=== PATIENT | male | born 1970 | race Caucasian/White ===

== ENCOUNTER 2020-12-07 23:25 | Emergency (ER) | payer OTHER, SELFPAY ==
[2020-12-07 23:28] VITALS: BP 166/64; PULSE 68; RESP 16; TEMP 36.1; O2SAT 99; BMI 23.6
--- NOTE | 2020-12-08 00:34 | PC.NURSE ---
pt dressing dry intact no further bleeding noted. sister is sitting with pt. pt is intoxicated, calm and cooperative. pt states his head hurts alot.
[2020-12-08 01:00] VITALS: BP 131/85; PULSE 64; RESP 16
--- NOTE | 2020-12-08 01:05 | PC.NURSE ---
PT A&O, NO SOB OR CHEST PAIN. PT HAS BEEN DRINKING ALCOHOL THIS EVENING AT HIS FAMILY HOUSE. SISTER REPORT HE FELL BACKWARDS AND HIT HIS HEAD ON THE DRIVEWAY. PT IS ABLE TO ANSWER QUESTION, STATE HIS DATE OF AND KNOWS WHERE HE IS AT. REPORT GIVEN TO PRIMARY NURSE.
--- NOTE | 2020-12-08 01:38 | CT_ITS ---
EXAMINATION: CT HEAD WITHOUT CONTRAST CLINICAL INFORMATION: Fall. Loss of consciousness. COMPARISON: None. TECHNIQUE: Contiguous axial imaging was performed from the skull base to vertex without intravenous contrast. This CT examination was performed using dose optimization techniques as appropriate, variously including the following: * Automated exposure control * Adjustment of mA and/or kV according to patient size (this includes techniques or standardized protocols for targeted exams where dose is matched to indication/reason for exam; i.e. extremities or head) Use of iterative reconstruction technique DLP: 854 mGy-cm. FINDINGS: There is no evidence of acute intracranial hemorrhage or territorial infarction. No abnormal mass effect or midline shift is seen. Moss to white matter differentiation is well preserved. No extra-axial fluid collections are identified. No hydrocephalus. No significant volume loss. There is no abnormal attenuation within the brain parenchyma. There is a prominent subgaleal hematoma overlying the right parieto-occipital region. No underlying calvarial fracture. The mastoid air cells and visualized portions of the paranasal sinuses are well aerated. CT/CT head/brain wo con IMPRESSION: No acute intracranial pathology.
--- NOTE | 2020-12-08 01:54 | PC.NURSE ---
PT TAKEN TO CT-SCAN. PT IS ABLE TO ANSWER QUESTION APPROPRIATELY. NEUROS ARE INTACT
--- NOTE | 2020-12-08 02:05 | PC.NURSE ---
PATIENT RETURNED FROM CT SCAN, ANXIOUS TO BE DISCHARGED FROM ED, BUT COOPERATIVE WITH STAFF AT THIS TIME. WILL CONTINUE TO MONITOR.
--- NOTE | 2020-12-08 02:50 | ED_ITS ---
HPI - General Adult General Chief complaint: Fall Stated complaint: Fall/Head Lac Time Seen by Provider: 12/08/20 01:34 Source: patient Mode of arrival: ambulatory Limitations: no limitations History of Present Illness HPI narrative: 50-year-old male who presents emergency department for evaluation of injury to his scalp after fall. The patient states that he was drinking beer this evening. Apparently he tripped and fell backwards striking his head on the concrete. He may have had a brief loss of consciousness. He sustained a laceration to his scalp which was bleeding years brought to the emergency department for evaluation. The patient states this tetanus status is up-to-date. He denies headache, nausea or vomiting. He denies numbness or weakness. He states he was in his usual state of health until he fell. Related Data Allergies Allergy/AdvReac Type Severity Reaction Status Date / Time No Known Allergies Allergy Verified 12/07/20 23:31 Review of Systems Review of Systems: Yes all other systems are reviewed and are negative Neurologic: Reports Abnormal speech present [facility] Past Medical History [facility] Narrative: Patient has no medical problems. He does drink alcohol, denies tobacco and alcohol use. Social History Social History Advance Directives: No Advance Directives Information Provided: No Physical Exam Vital Signs: Vital Signs: Last Vital Signs Temp 97.0 F 12/07/20 23:28 Pulse 64 12/08/20 01:00 Resp 16 12/08/20 01:00 BP 131/85 12/08/20 01:00 Pulse Ox 99 12/07/20 23:28 Body Mass Index 23.6 Const: General: cooperative, healthy appearing and other (Patient appears intoxicated but he is very pleasant and cooperative) Orientation/consciousness: oriented to person and oriented to place Limitations: no limitations HENMT: Head: Yes normal to inspection, Yes normocephalic, Yes hematoma (3 x 3 cm right occipital area), Yes laceration (4.5 cm laceration to occipital scalp, full skin thickness, bleed) and Yes scalp tenderness Ears: external ears normal General nose exam: Normal external nose present Face and sinus: Yes normal facial exam Mouth: Normal oral and palatal mucosa present Throat: Yes posterior oropharynx normal Eyes: Periorbital: periorbital findings normal Eyelids: Yes eyelids normal Conjunctivae: conjunctivae normal Sclerae: sclerae normal Corneas: corneas normal Pupils: Equal, round and reactive pupils present Direct Ophthalmoscopy: normal light reflex Neck: Neck: Yes full ROM, Yes no lymphadenopathy, Yes no meningeal signs, Yes trachea midline and Yes supple Chest: Chest palpation & inspection: normal inspection of the chest and normal palpation of entire chest wall Resp: Effort & Inspection: normal respiratory effort and able to speak in complete sentences Auscultation: clear to auscultation bilaterally Cardio: Rate: regular rate Rhythm: regular rhythm Heart sounds: S1 normal heart sound present, S2 normal heart sound present and no murmurs GI: Inspection: Yes normal to inspection Palpation (GI): Soft to palpation, nontender, no guarding, not rigid and No hepatosplenomegaly present : General: Yes no CVA tenderness Back/Spine/Pelvis: Back: no CVA tenderness Cervical Spine: normal cervical lordosis Thoracic/Lumbar Spine: thoracic and lumbar spine normal to inspection Skin: Lesions: no lesions Rashes: no rashes Wounds: no wounds Neuro: General: oriented to person, oriented to place and no meningeal signs Cranial nerves: Yes CN's II-XII intact bilaterally and Yes Equal, round and reactive pupils present Cognition (Neuro): normal cognition Speech: Abnormal speech present Motor exam (neuro): 5/5 motor strength present throughout Extrem: General: Yes normal to inspection and Yes full ROM Psych: Appearance: well kempt Mental Status: mental status grossly normal Speech and movement: Normal speech and movement present Affect: normal affect Attitude: cooperative Thought process: Normal thought process present Thought content: Normal thought content present Course Course Course Narrative: 50-year-old male with no significant medical history, drinking alcohol this evening, slipped and fell backward striking his head on concrete with possible loss of consciousness. Physical examination revealed an intoxicated male with a large hematoma to the occipital area of his scalp with a 4.5 cm bleeding laceration. The laceration was repaired by me with seven 4.[address] scan of the patient's head revealed no fracture or bleeding in the brain. Patient's tetanus status up today. Patient will be discharged home in the care of his sister. He was given printed instructions on wound care and head injury. Procedures Laceration Scalp laceration: Site: scalp (A septal) Side (If applicable): right Description: linear Depth: involves muscle layer Local Anesthetic: lidocaine 1% and with epi Amount of anesthesia used (mL): 10 Pre-repair: wound explored Skin layer closed with: nylon Size (cm): 4-0 Number of sutures: 7 Technique: simple, interrupted Discharge Plan Discharge Clinical Impression: Traumatic injury of head with hematoma of scalp Fall Qualifiers: Encounter type: initial encounter Qualified Code(s): W19.XXXA - Unspecified fall, initial encounter Laceration of occipital region of scalp Qualifiers: Encounter type: initial encounter Qualified Code(s): S01.01XA - Laceration without foreign body of scalp, initial encounter Patient Disposition: Home, Self-Care Instructions: Head Laceration (ED), Head Injury (ED) Additional Instructions: The CT scan of your head revealed no skull fracture or bleeding in the brain. You have a large hematoma to scalp. You had a laceration which was repaired by me using 7 stitches. The stitches need to be removed by your doctor in 7-10 days. Follow the wound care instructions. Apply bacitracin twice a day. Follow-up with your doctor in 2 days. Please return to the emergency department if your symptoms get worse or if you develop any symptoms that are concerning to you.
== END 2020-12-08 03:22 | disposition home or self-care (01) ==
PROVIDERS: Emergency Provider Emergency Medicine Emergency Medical Services; PCP Family Medicine
DX: S01.01XA Laceration without foreign body of scalp, initial encounter (principal); G44.309 Post-traumatic headache, unspecified, not intractable; W01.0XXA Fall on same level from slipping, tripping and stumbling without subsequent striking against object, initial encounter; Y93.9 Activity, unspecified; Y92.9 Unspecified place or not applicable; Y99.9 Unspecified external cause status
CPT/HCPCS: 12001; 70450; 99284

== ENCOUNTER 2025-08-30 07:57 | Observation (INO) | payer OTHER, SELFPAY ==
[2025-08-30] VITALS (7 sets, daily range): BP systolic 112–190; BP diastolic 10–96; PULSE 65–100; RESP 16–20; TEMP 36.2–36.6; O2SAT 95–100; BMI 25.8
--- NOTE | ~2025-08-30 | MR_ITS ---
EXAM: MRI Lumbar Spine without Contrast. TECHNIQUE: Multiplanar multisequence MRI of the lumbar spine with performed without contrast. INDICATION: back pain, left leg pain, weakness PRIOR: CT lumbar spine August 30, 2025 FINDINGS: 5 non-rib bearing lumbar segments are present on CT. Marrow and end-plates: Modic 1 signal change is present at L3-4 and L4-5. Alignment: There is subtle retrolisthesis at L3-4 and L4-5. Soft tissues: Paraspinal soft tissues and major vascular structures are unremarkable. Conus: The termination of conus medullaris is within normal limits at the level of T12-L1. T12-L1: There is no disc bulge, herniation, spinal stenosis, or foraminal narrowing. L1-L2: There is no disc bulge, herniation, spinal stenosis, or foraminal narrowing. L2-L3: There is mild disc bulge and small right central protrusion not resulting in spinal stenosis or foraminal narrowing. L3-L4: There is mild loss disc height and circumferential broad-based disc bulge. There is mild to moderate facet degeneration. There is trace fluid in the facet joints, greater on the right. There is mild narrowing of the left lateral recess with disc contacting the left L4 nerve roots. There is mild foraminal narrowing, greater on the left. L4-L5: There is circumferential broad-based disc bulge and moderate facet arthropathy with ligament flavum thickening not resulting in spinal stenosis. There is mild subarticular zone narrowing. There is moderate severe right foraminal narrowing likely with encroachment of the right L4 nerve root. There is mild left foraminal narrowing. L5-S1: Level is fused from the anterior approach. There is no spinal stenosis. There is mild foraminal narrowing related to bony spurs projecting from the vertebral bodies. MR/MR lumbar spine wo con IMPRESSION: L3-L4: There is mild narrowing of the left lateral recess with disc contacting the left L4 nerve roots. L4-L5: There is mild bilateral subarticular zone narrowing with moderate to severe right foraminal narrowing likely with encroachment of the right L4 nerve root. L5-S1: Level is fused from the anterior approach Electronically signed by: Evgeny Verduzco MD 08/31/2025 03:15 PM EDT
--- NOTE | ~2025-08-30 | CT_ITS ---
EXAMINATION: CT LUMBAR SPINE CLINICAL INFORMATION: Back injury 6 weeks prior, low back pain, right lower extremity weakness, tingling and paralysis. COMPARISON: None available. TECHNIQUE: Spiral CT imaging of the lumbar spine performed in axial plane without contrast. Multiplanar reformatted images were constructed from the axial data set. This CT examination was performed using dose optimization techniques as appropriate, variously including the following: *Automated exposure control *Adjustment of mA and/or kV according to patient size (this includes techniques or standardized protocols for targeted exams where dose is matched to indication/reason for exam; i.e. extremities or head) *Use of iterative reconstruction technique FINDINGS: There is no significant scoliosis. There is a normal lumbar lordosis. There is a 2 mm retrolisthesis L3 on L4, likely degenerative. No additional subluxations. There is otherwise anatomic alignment. There has been prior fusion of L5-S1 with disc prosthesis and oblique interbody endplate screws. The hardware is intact, well seated, without evidence of complication or loosening. There is bony fusion through the disc space. There is no fracture, compression deformity, or suspicious bone lesion. Mild to moderate disc degeneration is present at L3-4. There is otherwise only mild disc degeneration. There is normal facet alignment. There are no pars defects or facet fractures. At T12-L1, L1-L2, and L2-L3, there is no significant disc herniation, or central canal stenosis. At L3-L4, there is a diffuse disc bulge, extending into both foraminal zones, resulting in moderate central canal narrowing. There is also moderate bilateral subarticular recess narrowing left greater than right. There is moderate bilateral neural foraminal narrowing. At L4-5, there is a diffuse bulging disc, resulting in mild to moderate central canal stenosis and moderate bilateral subarticular recess stenosis. Moderate right greater than left neural foraminal narrowing is present secondary to right greater than left facet hypertrophic changes. At L5-S1, there is streak artifact from fusion hardware. There is no significant central canal, or lateral recess stenosis. There is mild bilateral neural foraminal narrowing. The imaged soft tissues including intraperitoneal and retroperitoneal structures demonstrate no abnormalities. The aorta is nonaneurysmal. Contrast excretion from both kidneys is noted. CT/CT lumbar spine w IV con IMPRESSION: 1. There are no acute fractures or acute bony abnormalities of the lumbar spine. 2. There are bulging discs at L3-4, and L4-5 as discussed. No high-grade central canal stenosis is evident. 3. There has been prior fusion at L5-S1 without complication evident. There is bony fusion through the disc space. Electronically signed by: Bryan Cavanaugh MD 08/30/2025 09:15 AM EDT
--- NOTE | ~2025-08-30 | CT_ITS ---
EXAMINATION: CT HEAD WITHOUT CONTRAST (STROKE PROTOCOL) CLINICAL INFORMATION: Stroke protocol. Right lower extremity weakness. COMPARISON: December 08, 2020. TECHNIQUE: Contiguous axial imaging was performed from the skull base to vertex without intravenous administration of contrast. This CT examination was performed using dose optimization techniques as appropriate, variously including the following: *Automated exposure control *Adjustment of mA and/or kV according to patient size (this includes techniques or standardized protocols for targeted exams where dose is matched to indication/reason for exam; i.e. extremities or head) *Use of iterative reconstruction technique DLP: 800 mGy centimeter. FINDINGS: Focal areas of encephalomalacia involving the right and to a lesser extent left frontal rectus gyrus. No acute intracranial hemorrhage, mass effect, midline shift, hydrocephalus or herniation. Slight asymmetric increased density/attenuation measuring 58 Hounsfield units, right MCA. Moss-white matter differentiation is normal. Posterior cranial fossa contents demonstrated no acute intracranial hemorrhage or mass effect. Sellar/suprasellar region demonstrated no gross masses. Craniocervical junction demonstrates normal position of the cerebellar tonsils. No acute fracture in the bony calvarium. No air-fluid levels in the paranasal sinuses. Poor pneumatization left frontal sinus. Tympanic cavities and mastoid air cells are aerated. CT/CT head for STROKE IMPRESSION: No acute intracranial hemorrhage. Bifrontal lobe encephalomalacia concerning prior injury versus prior vascular insult ANUM territory. Disorder CT angiogram head and neck. This critical result was discussed with emergency physician Dr. Gabo Roca at 8:25 AM hours on August 30, 2025. It was ascertained that the content and urgency of the report was understood at the time of direct communication. Electronically signed by: Teo Gay MD 08/30/2025 08:27 AM EDT
--- NOTE | ~2025-08-30 | CT_ITS ---
EXAMINATION: CTA NECK WITH CONTRAST (STROKE) CTA BRAIN WITH CONTRAST (STROKE) CLINICAL INFORMATION: Right lower extremity weakness/numbness. Speech disturbances. COMPARISON: None available. TECHNIQUE: CTA of the head and neck was performed in the axial plane from the mediastinum to the skull vertex using 70 mL Omnipaque 350 intravenous contrast. Additional reformatted multiplanar images including maximum intensity projection MIP images are generated on the CT workstation. This CT examination was performed using dose optimization techniques as appropriate, variously including the following: *Automated exposure control *Adjustment of mA and/or kV according to patient size (this includes techniques or standardized protocols for targeted exams where dose is matched to indication/reason for exam; i.e. extremities or head) *Use of iterative reconstruction technique DLP: 1228 mGy centimeter. FINDINGS: The degree of stenosis determined by criteria similar to NASCET. Chest CTA: Incomplete evaluation of the aortic arch demonstrated no aneurysm or dissection with normal patency of the main branches. Neck CTA: Right CCA: Normal patency. No focal stenosis. No intimal flap. Right ICA: Normal patency. No focal stenosis. No intimal flap. Left CCA: Normal head CT. No focal stenosis. No intimal flap. Left ICA: Normal patency. No focal stenosis. No intimal flap. V1/V2 segments: Normal patency. No focal stenosis. No intimal flap. Codominant. Origin is directly from the subclavian artery. Brain CTA: Anterior cerebral circulation: ICAs: Normal patency. No focal stenosis. No abrupt cut off. MCA: Normal patency. No focal stenosis. No abrupt cut off. No vascular irregularity at the bifurcation/trifurcations. ACAs: Normal patency. No focal stenosis. No abrupt cut off. Anterior communicating artery is patent. Ophthalmic arteries are patent. There is a 1.5 mm vascular enhancing irregularity at the origin of the right ophthalmic artery. Posterior communicating arteries: Small-caliber on the right. The left is not identified. Posterior cerebral circulation: V3/V4 segments: Normal patency. No focal stenosis. No intimal flap. Posterior inferior cerebellar arteries are patent. No vascular irregularity. Basilar artery: Normal patency. No focal stenosis. No intimal flap. Right anterior inferior cerebral arteries patent. Superior cerebellar arteries are patent. professor of graphic design: Normal patency. No focal stenosis. No abrupt cut off. Ancillary findings: Main cerebral venous sinuses and cerebral veins are patent without intraluminal filling defects. CT/CT angio head neck STROKE IMPRESSION: No main cerebral artery occlusion or embolus. No high degree stenosis or dissection, extracranial arteries. 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 This critical test result is communicated to: Emergency physician Dr. Gabo Roca via [employer] at 9:03 AM on August 30, 2025. Electronically signed by: Teo Gay MD 08/30/2025 09:03 AM EDT
[2025-08-30 08:07] LABS: Glucose, Whole Blood 100 mg/dL (60-115)
[2025-08-30 08:07] LABS: Prothrombin Time Whole Bld POC 12.4 sec (11.1-13.5); ~PT, ~INR - Anti Coag Clinic 1.0 (0.9-1.1)
--- NOTE | 2025-08-30 08:07 | ECG_ITS ---
Test Reason : Stroke Protocol Blood Pressure : */* mmHG Vent. Rate : 66 BPM Atrial Rate : 66 BPM P-R Int : 194 ms QRS Dur : 106 ms QT Int : 462 ms P-R-T Axes : 38 18 31 degrees QTcB Int : 484 ms Normal sinus rhythm Prolonged QT Abnormal ECG No previous ECGs available Referred By: Gabo Roca Electronically Signed By: JESSICA GOFF
--- NOTE | 2025-08-30 08:08 | ED.NEUROSD ---
HPI - Neuro Symptoms/Deficit General Chief Complaint: Neuro Symptoms/Deficit Stated Complaint: Tingling Arms & Legs Time Seen by Provider: 08/30/25 08:03 Source: patient and family Mode of arrival: EMS Limitations: no limitations History of Present Illness ED Provider: HPI Narrative: Patient presented as a stroke alert this is a 54-year-old male who had last well known time at 07:00 in the morning, he woke up went to get coffee and then essentially what happened was he had his right leg gave out and then he screamed for his girlfriend and she was able to assist him to a chair and it sounds like he was hyperventilating and started developing bilateral upper extremity spasms and had a hard time speaking as she was calling EMS, he was stating that he had tingling in his right arm and right leg but he could not speak or move his upper extremities. I spoke to patient's family, patient does drink 2 beers a day, he has been having low back pain issues for the past 1 month, he has had history of back surgeries 2 years ago, went to see PCP for MRI last week that has been denied, and then his leg gave out today and he went down on the floor and then these other events happened. At the time of my evaluation patient was stable, he was speaking full sentences, he was complaining of right leg pain and weakness, and he was extremely tremulous. We will re-evaluate patient after imaging. Related Data Home Medications ?Medication ?Instructions ?Recorded ?Confirmed lisinopril 5 mg tablet 5 mg PO DAILY 08/30/25 08/30/25 Previous Rx's ?Medication ?Instructions ?Recorded dexamethasone 4 mg tablet See Rx Instructions .Route 09/01/25 .COMPLEX #18 tabs oxycodone 5 mg tablet 5 mg PO Q6H PRN pain #20 tabs 09/01/25 Allergies Allergy/AdvReac Type Severity Reaction Status Date / Time No Known Allergies Allergy Verified 08/30/25 08:12 Review of Systems Constitutional: Constitutional: Reports as per [facility] Past Medical History Surgical History H/O spinal fusion Social History Social History (Updated 08/30/25 @ 15:05 by RAMAN Pack) Household Members: Family Housing: House Do you presently have visiting nurse or other home services: No Alcohol intake: current Alcohol intake frequency: a few times a week Alcohol type: beer Comment: 4-5 days per week Patient Tobacco Use Status: Never used Tobacco service: No Physical Exam Vital Signs: Vital Signs: Last Vital Signs Temp 97.2 F 09/01/25 11:34 Pulse 60 09/01/25 11:34 Resp 20 09/01/25 11:34 BP 123/68 09/01/25 12:02 Pulse Ox 96 09/01/25 11:34 O2 Del Method Room Air 09/01/25 11:34 BMI result Body Mass Index 25.8 Const: Other: General: ?Somewhat plethoric face, tremulous examined on the gurney ? ?PERRLA, EOMI, MMM, no tongue fasciculations ? Neck: Supple, no LAD ? ?CV: RRR, no obvious murmurs appreciated ? ?Resp: ?No wheezing rales rhonchi no stridor moving air well ? Abd: ?Bowel sounds are present, no tenderness no rebound no rigidity ? ?MSK: Patient was able to lift his right leg off the gurney just briefly, was able to hold his left leg for a full 10 seconds, reports tingling his right arm and right leg, distal pulses intact ? Skin: Warm, dry, intact, ? ?Neuro: ?Alert and oriented x3, no weakness or drift left upper or right upper extremity, reports tingling arm and leg on the right side and he has weakness of the right leg, no obvious facial asymmetry noted, cranial nerves 2-12 intact Medications Administered Discontinued Medications Generic Name Dose Route Start Last Admin Trade Name Kandy PRN Reason Stop Dose Admin Aspirin 81 mg 08/30/25 15:25 09/01/25 12:02 Aspirin Enteric Coated 81 Mg Tablet. PO 81 mg DAILY MONALISA Administration Atorvastatin Calcium 40 mg 08/30/25 21:00 08/31/25 22:01 Atorvastatin Calcium 40 Mg Tablet PO 40 mg BEDTIME MONALISA Administration Dexamethasone Sodium Phosphate 10 mg 08/30/25 08:53 08/30/25 09:06 Dexamethasone Sod Phosphate 10 Mg/Ml Vial IVPUSH 08/30/25 08:54 10 mg ONCE ONE Administration Dexamethasone Sodium Phosphate 6 mg 08/30/25 17:00 09/01/25 12:02 Dexamethasone Sod Phosphate 4 Mg/Ml Vial IVPUSH 6 mg Q8H MNOALISA Administration Diazepam 2.5 mg 08/30/25 09:29 08/30/25 09:40 Diazepam 10 Mg/2 Ml Cartridge IVPUSH 08/30/25 09:30 2.5 mg STAT STA Administration Diazepam 2 mg 08/30/25 11:00 08/30/25 11:28 Diazepam 2 Mg Tablet PO 08/30/25 11:01 2 mg ONCE ONE Administration Folic Acid 1 mg 08/31/25 09:00 09/01/25 12:02 Folic Acid 1 Mg Tablet PO 1 mg DAILY MONALISA Administration Hydromorphone HCl 2 mg 08/30/25 08:53 08/30/25 09:05 Hydromorphone Hcl 2 Mg/Ml Vial IVPUSH 08/30/25 08:54 2 mg ONCE ONE Administration Protocol Sodium Chloride 1,000 mls @ 999 mls/hr 08/30/25 09:00 08/30/25 10:15 Ns IV 08/30/25 10:00 Infused .Q1H1M MONALISA Infusion Iohexol 100 ml 08/30/25 08:35 08/30/25 08:36 Iohexol 350 Mg/Ml 100 Ml Infus..Btl IV 08/30/25 08:36 70 ml ONCE ONE Administration Ketorolac Tromethamine 15 mg 08/30/25 09:29 08/30/25 09:39 Ketorolac Tromethamine 15 Mg/Ml Vial IVPUSH 08/30/25 09:30 15 mg ONCE ONE Administration Ketorolac Tromethamine 15 mg 08/30/25 13:56 08/31/25 22:07 Ketorolac Tromethamine 30 Mg/Ml Vial IVPUSH 15 mg Q6H PRN Administration Pain, Moderate(Pain Scale 4-6) Lisinopril 5 mg 08/31/25 09:00 09/01/25 12:02 Lisinopril 5 Mg Tablet PO 5 mg DAILY MONALISA Administration Protocol Morphine Sulfate 15 mg 08/30/25 10:59 08/30/25 11:29 Morphine Sulfate Immed Release 15 Mg Tablet PO 08/30/25 11:00 15 mg ONCE ONE Administration Morphine Sulfate 2 mg 08/30/25 13:56 08/30/25 16:29 Morphine Sulfate 4 Mg/Ml Cartridge IVPUSH 2 mg Q4H PRN Administration Pain, Severe (Pain Scale 7-10) Protocol Morphine Sulfate 2 mg 08/30/25 19:02 08/31/25 06:12 Morphine Sulfate 4 Mg/Ml Cartridge IVPUSH 2 mg Q3H PRN Administration Pain, Severe (Pain Scale 7-10) Protocol Ondansetron HCl 4 mg 08/30/25 08:53 08/30/25 09:06 Ondansetron Hcl 4 Mg/2 Ml Vial IVPUSH 08/30/25 08:54 4 mg ONCE ONE Administration Oxycodone HCl 10 mg 08/30/25 10:59 08/30/25 11:28 Oxycodone Hcl Er 10 Mg Tab.Er.12h PO 08/30/25 11:00 10 mg ONCE ONE Administration Sodium Chloride 3 ml 08/30/25 16:00 09/01/25 12:03 0.9 % Sodium Chloride Flush 3 Ml Syringe IVFLUSH 3 ml QSHIFT MONALISA Administration Thiamine HCl 100 mg 08/31/25 09:00 09/01/25 12:02 Thiamine Hcl 100 Mg Tablet PO 100 mg DAILY MONALISA Administration Medical Decision Making Medical Decision Making MDM Narrative: 8:31 AM 08/30/2025 (Dr. Gabo Roca): Patient evaluated with concern for stroke and I was awaiting for family to arrive that confirmed someone my suspicions to meet sounds like patient is dealing with back issue and he has right-sided sciatica with a positive straight leg raise test, without saddle paresthesia anesthesia loss of bowel or bladder function, no IV drug use to suspect diskitis osteomyelitis spinal epidural abscess, imaging obtained to evaluate for spinal cord compression of his anything on the CT that necessitates emergent MRI I will follow up with that, however the rest of his physical examination has been reassuring except for some tingling in his arm and leg on the right side without any facial deficits, I suspected that he hyperventilated into carpopedal spasm and he was still extremely tremulous at the time of my initial evaluation. 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 Did not feel that involving Dr. Ni at this time is indicated. 8:50 AM 08/30/2025 (Dr. Gabo Roca): Patient is re-examined once in the room he has no neurologic deficits cranial nerves intact, no dysmetria upper extremities, he has pain and hypersensitivity in the L4-L5 dermatome on the right side, positive straight leg raise test and he has significant amount of pain, so to me does confirm my initial suspicion as discussed above. 9:30 AM 08/30/2025 (Dr. Gabo Roca): Re-evaluated, feels better, CT lumbar spine shows imaging consistent with my physical exam findings, and I discussed the 1.5 mm aneurysm right ophthalmic artery with family as well 10:58 AM 08/30/2025 (Dr. Gabo Roca): Still in significant amount of pain, we will try oral meds may need to be admitted for pain control, 1. There are no acute fractures or acute bony abnormalities of the lumbar spine. 2. There are bulging discs at L3-4, and L4-5 as discussed. No high-grade central canal stenosis is evident. 3. There has been prior fusion at L5-S1 without complication evident. There is bony fusion through the disc space. MPRESSION: No main cerebral artery occlusion or embolus. No high degree stenosis or dissection, extracranial arteries. 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 Differential Diagnosis Differential Diagnoses: The differential diagnosis associated with the presentation includes (Hemorrhagic versus ischemic stroke, spinal radiculopathy, diskitis osteomyelitis, spinal epidural abscess, cauda equina) Admission/Observation Consideration of admission/observation: Escalation of care including admission/observation considered Consult Healthcare Provider Management of the patient was discussed with: [employer] Manager (Discussed imaging with the radiologist) Lab Data MDM Lab Attestation statement: I reviewed the patient's lab results. 08/30/25 08:05 08/30/25 08:05 Labs: Lab Results 08/30/25 08/30/25 08/30/25 Range/Units 07:59 08:02 08:05 WBC 6.0 (4.8-10.8) X10*3/uL RBC 4.66 (4.60-5.80) X10*6/uL Hgb 15.5 (14.0-18.0) g/dl Hct 41.8 L (42.0-52.0) % MCV 89.7 (80.0-98.0) fL MCH 33.3 H (27.0-33.0) pg MCHC 37.1 H (31.0-36.0) g/dl RDW 11.8 (11.0-16.0) % Plt Count 234 (160-400) X10*3/uL MPV 8.9 L (9.4-12.4) fL Immature Gran % (Auto) 0.2 (0.0-0.4) % Neut % (Auto) 35.4 L (45-73) % Lymph % (Auto) 47.7 H (20-40) % Bath % (Auto) 10.0 (2-11) % Eos % (Auto) 6.2 H (0-4) % Baso % (Auto) 0.5 (0-2) % Lymph # (Auto) 2.9 (1.2-4.9) X10*3/uL Bath # (Auto) 0.6 (0.1-1.2) X10*3/uL Eos # (Auto) 0.4 (0.0-0.4) X10*3/uL Baso # (Auto) 0.0 (0.0-0.2) X10*3/uL Abs Immat Gran (auto) 0.01 (0.00-0.03) X10*3/uL Absolute Neuts (auto) 2.1 (2.0-8.3) x10*3/uL Absolute Nucleated RBC 0.000 (0.0-0.012) X10*3/uL Nucleated RBC % (auto) 0.0 (0.0-0.2) /100WBC Hold Purple Top SEE NOTE PT 10.8 L (10.9-12.4) SEC Whole Blood PT 12.4 (11.1-13.5) sec INR 0.9 (0.9-1.1) Whole Blood INR 1.0 (0.9-1.1) APTT 28.1 (26.7-34.1) SEC Sodium 139 (135-145) mmol/L Potassium 3.8 (3.3-5.1) mmol/L Chloride 102 (96-108) mmol/L Carbon Dioxide 21 L (22-29) mmol/L Anion Gap 20 (12-20) BUN 11 (9-16) mg/dL Creatinine 0.91 (0.5-1.4) mg/dL Estim Creat Clear Calc 98.8 Estimated GFR > 60 POC Glucose 100 (60-115) mg/dL Random Glucose 126 H (60-115) mg/dL Calcium 9.6 (8.4-10.2) mg/dL Magnesium 2.1 (1.6-2.6) mg/dL Total Bilirubin 0.4 (0.0-1.0) mg/dL Direct Bilirubin 0.2 (0.0-0.5) mg/dL AST 45 H (5-37) U/L ALT 32 (0-40) U/L Alkaline Phosphatase 70 (39-117) U/L Troponin I High Sens < 2.7 (<3.5-35.0) ng/L Total Protein 8.5 H (6.5-8.0) g/dL Albumin 4.9 (3.5-5.0) g/dL Triglycerides 130 (<150) mg/dL Cholesterol 269 H (<200) mg/dL LDL Cholesterol, Calc 187 H (<100) mg/dL HDL Cholesterol 56 (>40) mg/dL Lipase 23 (8-78) U/L Ethyl Alcohol 13 mg/dL Independent Interpretation I performed an independent interpretation of an: EKG (66 beats per minute otherwise normal ECG without dysrhythmia, AV erick blocks or ST-T changes to suspect underlying ACS, my independent interpretation) Independent Historian Clinical information obtained from an independent historian. History obtained from or confirmed by: EMS and Other (family) Prescription Management I considered prescription management with: Pain Medication Chronic Conditions Patient?s care impacted by: Hypertension NIH Stroke Scale Time: 08:08 Level of Consciousness: Alert Level of Consciousness Questions: Answers both questions correctly Level of Consciousness Commands: Performs both tasks correctly Best Gaze: Normal Visual: No visual loss Facial Palsy: Normal Motor Arm (Right): No drift Motor Arm (Left): No drift Motor Leg (Right): Some effort against gravity Motor Leg (Left): No drift Limb Ataxia: Present in one limb Sensory: Mild to moderate sensory loss Best Language: No aphasia Dysarthia: Normal Extinction and Inattention: No abnormality Score: 4 Critical Care Time Critical Care Time Critical Care Time: Yes Total Critical Care Time: 60 Attestation: Time is exclusive of separately billable procedures. Time includes: direct patient care, patient reassessment, coordination of patient care, interpretation of data (laboratory data, pulse oximetry, arterial blood gases and chest xrays), review of patient's medical records, medical consultation and documentation of patient care. Procedures excluded from critical care time: central intravenous line placement and electrocardiography. Discharge Plan Discharge Clinical Impression: Back Pain, Brain TIA Patient Disposition: Admitted As Inpatient Interventions: Admission Worksheet (ED) Last Done: 08/30/25 20:17 Discharge Date/Time: 08/30/25 21:04
[2025-08-30 08:12] LABS: MANUAL DIFF FLAG NO
[2025-08-30 08:18] LABS: Hematocrit 41.8 % (42.0-52.0); Hemoglobin 15.5 g/dl (14.0-18.0); Imm Gran Abs Auto 0.01 X10*3/uL (0.00-0.03); Imm Gran Pct Auto 0.2 % (0.0-0.4); Lymphocytes Absolute Auto 2.9 X10*3/uL (1.2-4.9); Mean Corpuscular HGB Conc 37.1 g/dl (31.0-36.0); Mean Corpuscular Hemoglobin 33.3 pg (27.0-33.0); Mean Corpuscular Volume 89.7 fL (80.0-98.0); NRBC Abs Auto 0.000 X10*3/uL (0.0-0.012); NRBC Pct Auto 0.0 /100WBC (0.0-0.2); Platelet Count 234 X10*3/uL (160-400); Red Blood Count 4.66 X10*6/uL (4.60-5.80); White Blood Count 6.0 X10*3/uL (4.8-10.8)
[2025-08-30 08:20] LABS: INTERNATIONAL NORM RATIO 0.9 (0.9-1.1); Prothrombin Time 10.8 SEC (10.9-12.4)
[2025-08-30 08:22] LABS: Partial Thromboplastin Time 28.1 SEC (26.7-34.1)
[2025-08-30 08:24] LABS: Stroke Lab Use COMPLETE
[2025-08-30 08:35] LABS: Alanine Aminotransferase 32 U/L (0-40); Albumin Level 4.9 g/dL (3.5-5.0); Alkaline Phosphatase 70 U/L (39-117); Anion Gap 20 (12-20); Aspartate Amino Transferase 45 U/L (5-37); Blood Urea Nitrogen 11 mg/dL (9-16); Calcium 9.6 mg/dL (8.4-10.2); Carbon Dioxide 21 mmol/L (22-29); Chloride 102 mmol/L (96-108); Cholesterol 269 mg/dL (<200); Creatinine Clr Calc Pharmacy 98.8; Estimated Glomerular Filt Rate > 60; HDL Cholesterol 56 mg/dL (>40); Lipase 23 U/L (8-78); Magnesium 2.1 mg/dL (1.6-2.6); Potassium 3.8 mmol/L (3.3-5.1); Sodium 139 mmol/L (135-145); Total Protein 8.5 g/dL (6.5-8.0); Triglycerides 130 mg/dL (<150)
[2025-08-30] MEDS: iohexoL 350 MG/ML 100 ML INFUS..BTL IV (08:36)
--- NOTE | 2025-08-30 08:36 | PC.NURSE ---
STROKE ALERT BY EMS. LKWT 7AM Pt having back issues X1 month, back surgery 3 years ago, recent increase of pain. Was scheduled for MRI but denied by insurance. Woke at 5A, around 7A, leg gave out and stumbled in the kitchen, felt full body paralysis and loss of words, called for help. Presented to ED with tremors, severe lower back pain, right leg weakness/reduced mobility. No issues with speech, facial droop and upper extremities. Stroke protocol followed. Weight done on bed. Pt alert and oriented, breathing even and unlabored, skin cool, tremors. NSR on bedside monitor, VSS. POC 100. IV 20G in right forearm. Orders followed. Plan of care: MRI of back.
[2025-08-30 08:37] LABS: Troponin-I High Sensitivity < 2.7 ng/L (<3.5-35.0)
--- NOTE | 2025-08-30 08:38 | MHC.STROKE ---
Called to ED for stroke alert Pt in CT scan Pt awake, alert and oriented x 4. Reports waking at 0700 and felt well. States that when he went to walk from the bedroom his left leg gave out Reports feeling like his whole body was numb/tingling. Pt presents to ED with c/o right sided tingling. Speaking in full sentences. [place] right side. Pt also has hx of back surgery and family reports he's had increased pain for weeks. Seen by PCP who wanted an MRI however insurance denied it. Stroke Education/protocol reviewed with patient and family. Pt's medical hx including medications, diet, social hx discussed/reviewed. All questions answered.
--- OUTSIDE RECORDS SUMMARY | 2025-08-30 09:34 | XMS_ITS | Encounter Summary ---
Author Organization [facility], Located [facility] Address [address] [place] [address] Care Team Providers Care Band Tumbler Name Role Phone Leia Romero MD Primary Care Provider + Bulmaro Chen MD Unavailable [phone] Carine Small MD Unavailable [phone] Encounter Details Date Type Department Care Team (Late st Contact Info) Description 01/26/2022 Scanned Document [facility] Neuro[facility] [address] [place] [phone] Ceci Sevilla PA Valid Address Needed Social History Tobacco Use Types Packs/Day Years Used Date Smoking Tobacco: Never Smokeless Tobacco: Never Alcohol Use Standard Drinks/Week Comments Yes 12 (1 standard drink = 0.6 oz pu re alcohol) 2-3 drinks/night Sex and Gender Information Value Date Recorded Sex Assigned at Male 09/22/2023 9:56 AM EDT Legal Sex Male 1:58 PM EST Gender Identity Male 09/22/2023 9:56 AM EDT Sexual Orientation Heterosexual (straight) 09/22 9:56 AM EDT COVID-19 Exposure Response Date Recorded In the last month, have you been in contact with someone who was confirmed or suspected to have Coronavirus / COVID-19? No / Unsure 01/26/2022 12:35 PM EST documented as of this encounter Plan of Treatment Not on file documented as of this encounter Visit Diagnoses Not on filedocumented in this encounter Care Teams Band Tumbler Relationship Specialty Start Date End Date Leia Romero MD [facility] [address] [facility] [address] [place] [address] PCP - General Family Medicine 01/20/22 Bulmaro Chen MD 31 [facility] 100 [place] [address] Surgery, Orthopedic 01/20/22 Carine Small MD 85 [facility] [address] [place] [address] Surgery, Neurosurgery 01/30/22 documented as of this encounter
--- OUTSIDE RECORDS SUMMARY | 2025-08-30 09:34 | XMS_ITS | Encounter Summary ---
Author Organization [facility] Address 100 [place] [address] Care Team Providers Care Short Goods Drier Name Role Phone Leia Romero MD Primary Care Provider + Bulmaro Chen MD Unavailable [phone] Carine Small MD Unavailable [phone] Encounter Details Date Type Department Care Team (Late st Contact Info) Description 05/19/2024 Scanned Document [facility] [address] [place] [address] Sushant Yun MD [address] [place] [address] Social History Tobacco Use Types Packs/Day Years Used Date Smoking Tobacco: Never Smokeless Tobacco: Never Alcohol Use Standard Drinks/Week Comments Not Currently 0 (1 standard drink = 0.6 oz pure alcohol) 1-2 drinks 2-3 times a week -Advised to stop 2 weeks before surgery AUDIT-C Answer Date Recorded Q1: How often do you have a drink containing alc ohol? 2-3 times a week 06/16/2022 Q2: How many drinks containi ng alcohol do you have on a typical day when you are drinking? 1 or 2 06/16/2022 Q3: How often do you have si x or more drinks on one occasion? Never 06/16/2022 Sex and Gender Information Value Date Recorded Sex Assigned at Male 09/22/2023 9:56 AM EDT Legal Sex Male 1:58 PM EST Gender Identity Male 09/22/2023 9:56 AM EDT Sexual Orientation Heterosexual (straight) 09/22 9:56 AM EDT documented as of this encounter Plan of Treatment Not on file documented as of this encounter Visit Diagnoses Not on filedocumented in this encounter Care Teams Short Goods Drier Relationship Specialty Start Date End Date Leia Romero MD [facility] [address] [facility] [address] [place] [address] PCP - General Family Medicine 01/20/22 Bulmaro Chen MD 31 [facility] 100 [place] [address] Surgery, Orthopedic 01/20/22 Carine Small MD 85 [facility] [address] [place] [address] Surgery, Neurosurgery 01/30/22 documented as of this encounter
--- OUTSIDE RECORDS SUMMARY | 2025-08-30 09:34 | XMS_ITS | Clinical Summary ---
Author Organization [facility] Address [address] [place] [address] Care Team Providers Care Flight Hostess Name Role Phone Leia Romero MD Primary Care Provider + Bulmaro Chen MD Unavailable [phone] Carine Small MD Unavailable [phone] Allergies Active Allergy Reactions Criticality Noted Date Comments Latex Rash/Dermatitis Medium 01/20/2022 Medications Probiotic Product (PROBIOTIC-10 PO) Take 1 tablet by mouth every morning. Active acetaminophen (TYLENOL) 325 MG tabletIndications :Lumbar degenerative disc disease Take 3 tablets (975 mg total) by mouth every 6 (six) hours. 168 tablet 2 Active aspirin enteric coated (ECOTRIN LOW STRENGTH) 81 MG EC tabletIndications :Lumbar degenerative disc disease Take 1 tablet (81 mg total) by mouth 2 (two) times a day. 42 tablet 2 Active lactulose (ENULOSE) 10 gm/15 mL solutionIndicatio ns:Lumbar degenerative disc disease Take 30 mL (20 g total) by mouth every 4 (four) hours as needed (if no bowel movment by day 3). 240 mL 2 Active senna-docusate (SENNA-S) 8.6-50 MGIndications:Lum bar degenerative disc disease Take 2 tablets by mouth nightly. 60 tablet 2 Active HYDROmorphone (DILAUDID) 2 MG tabletIndications :Lumbar degenerative disc disease Take 1 tablet (2 mg total) by mouth every 4 (four) hours as needed for moderate pain or severe pain. Patient may request partial fill, Maximum of 6 tabs QD Max Daily Amount: 12 mg 36 tablet 2 Active methocarbamol (ROBAXIN) 750 MG tabletIndications :Chronic right shoulder pain Take 1 tablet (750 mg total) by mouth 3 times daily (every 8 hours) as needed for muscle spasms. 30 tablet 4 Active Active Problems Problem Noted Date Diagnosed Date Lumbar degenerative disc disease 06/26/2022 Chronic midline low back pain with left-sided sc iatica 06/22/2022 Dyspepsia 01/30/2022 Closed right trimalleolar fracture, initial enco unter 01/30/2022 Encounters Date Type Department Care Team Description 08/01/2025 Documentation [facility] [address] [address] Lila Keen, PT Right Shoulder - PT Discharge from Last 3 Months Family History Medical History Relation Name Comments No Known Problems Daughter No Known Problems Father Aneurysm Mother No Known Problems Sister 1 No Known Problems Sister 2 No Known Problems Sister 3 No Known Problems Son Relation Name Status Comments Daughter Alive Father Alive Mother Sister 1 Alive Sister 2 Alive Sister 3 Son Alive Social History Tobacco Use Types Packs/Day Years [...] Orientation Heterosexual (straight) 09/22 9:56 AM EDT Last Filed Vital Signs Vital Sign Reading Time Taken Comments Blood Pressure 122/71 06/27/2022 10:10 AM EDT Pulse 67 06/27/2022 10:10 AM EDT Temperature 36.2 C (97.2 F) 06/27/2022 10:10 AM EDT Respiratory Rate 18 06/27/2022 10:10 AM EDT Oxygen Saturation 96% 06/27/2022 10:49 AM EDT Inhaled Oxygen Concentration - - Weight 74.8 kg (165 lb) 06/22/2022 9:14 AM EDT Height 180.3 cm (5' 11 ) 06/22/2022 9:14 AM EDT Body Mass Index 23.01 06/22/2022 9:14 AM EDT Plan of Treatment Health Maintenance Due Date Last Done Comments Hepatitis C Virus Screening 1970 HIV Screening 1983 DTaP/Tdap/Td Vaccines (1 - Tdap) 1989 Hepatitis B Vaccines (1 of 3 - 19+ 3-dose series) 1989 Colonoscopy 2015 Pneumococcal Vaccines 50+ (1 of 1 - PCV) 2020 Zoster (Shingles) Vaccine (1 of 2) 2020 Influenza Vaccine 06/29/2025 10/02/2015, , 11/15/2013, Additional history exists COVID-19 Vaccine (2024-2 6 season) 2025 07/17/2022, 10/16/2021, 03/05/2021 Goals Goal Patient Goal Type Associated Problems Recent Progress Patient-Stated? Author PT STG 1 Physical Therapy On track( 024 11:00 AM EDT) Teresa Yuan, PT Note: Patient will improve right shoulder flexion active range of motion to 160 degrees to be able to reach overhead into cabinet with right upper extremity with less than 5 out of 10 right shoulder pain within 4 weeks. Patient will be able to reach behind back to put wallet in pocket with right upper extremity with less than 5 out of 10 right shoulder pain within 4 weeks. Patient will be independent with right upper extremity and cervical home exercise program within 4 weeks. This documentation is for closing of the episode of care. The patient was not treated on the date of this documentation and there are no charges associated with this documentation. PT LTG 1 Physical Therapy On track( 024 11:00 AM EDT) No Teresa Cabrera, PT Note: Patient will be able to sleep on right side x 4 hours with less than 2 out of 10 right cervical pain within 8 weeks. Patient will be able to pound bag of groceries from floor to counter with increased right shoulder flexion strength to 4+ out of 5 with less than 2 out of 10 right shoulder pain independently within 8 weeks. Patient will decrease QuickDASH score by 25% within 8 weeks. This documentation is for closing of the episode of care. The patient was not treated on the date of this documentation and there are no charges associated with this documentation. Medical Devices Implanted Type Area Roll Hauler Device Identifier Shelf Expiration Date Model / Serial / Lot [id number] Instrument Spinal M3 Stndaln Spine Lock Asmb Alif - [id number] Implanted:Qty : 1 on 06/26/2022 by Radha Ulloa MD at [facility] Cage N/A: Spine Lumbar [employer] [id number] / / [id number] Acumed Fibula Nail 2 System 2.6mm X 190mm Fibula Nail 2 Implanted:Qty : 1 on 01/30/2022 by Bulmaro Chen MD at [facility] Nail/Kali Right: Ankle ACUMED Hurray! 09/07/2027 [id number] -S / / [id number] Screw Bone Ernesto 50mm Ti 3.5mm Hexalobe Nonst Sm Frag Base - [id number] Implanted:Qty : 2 on 01/30/2022 by Bulmaro Chen MD at [facility] Screw Right: Ankle [employer]! / / Screw Bone Ernesto 16mm Ti 3.5mm Hexalobe Nonst Sm Frag Base - [id number] Implanted:Qty : 1 on 01/30/2022 by Bulmaro Chen MD at [facility] Screw Right: Ankle [employer]UM[employer]! / / 2.7 X 60mm Non-Locking Screw Implanted:Qty : 1 on 01/30/2022 by Bulmaro Chen MD at [facility] Screw Right: Ankle [employer]UM[employer]! / / [id number] Graft Bone Infs Xs Spine Rhbmp-2 Bvn Collagen Absorbable - [id number] Implanted:Qty : 1 on 06/26/2022 by Radha Ulloa MD at [facility] Tissue N/A: Spine Lumbar [employer] 11/28/2023 [id number] / / [id number] Graft Bone Kore Fiber Ernesto Bone Fiber 5cc Algrf Mld High - [id number] Implanted:Qty : 1 on 06/26/2022 by Radha Ulloa MD at [facility] Tissue N/A: Spine Lumbar [employer] 07/09/2024 [id number] / [id number] / [id number] Stand Alone Alif Cage 27mm X40mm -15 Degree 15mm Implanted:Qty : 1 on 06/26/2022 by Radha Ulloa MD at [facility] N/A: Spine Lumbar [employer] 07/02/2026 [id number] / / [id number] 6.5 X 25 Mm Variable Screw Implanted:Qty : 2 on 06/26/2022 by Radha Ulloa MD at [facility] N/A: Spine Lumbar [employer] [id number] / / 6.5 X 20 Mm Variable Screw Implanted:Qty : 1 on 06/26/2022 by Radha Ulloa MD at [facility] N/A: Spine Lumbar [employer] [id number] / / Insurance [facility] Advance Directives * Full Code (Latest Code Status on File) Date Activated Date Inactivated Comments 06/26/2022 9:57 AM * Full Code Date Activated Date Inactivated Comments 06/26/2022 5:52 AM 06/26/2022 9:57 AM * Full Code Date Activated Date Inactivated Comments 01/30/2022 7:35 AM 06/26/2022 5:32 AM Care Teams Flight Hostess Relationship Specialty Start Date End Date Leia Romero MD [facility] [address] [place] [address] PCP - General Family Medicine 01/20/22 Bulmaro Chen MD [address] [place] [address] Surgery, Orthopedic 01/20/22 Carine Small MD [address] [place] [address] Surgery, Neurosurgery 01/30/22
--- OUTSIDE RECORDS SUMMARY | 2025-08-30 09:34 | XMS_ITS | Clinical Summary ---
Author Organization [facility] Address [address] [place] [address] Phone Care Team Providers Care Manager Ecommerce Name Role Phone Leia Romero MD Primary Care Provider [phone] Allergies Active Allergy Reactions Criticality Noted Date Comments Latex Itching 01/22/2022 Medications acetaminophen (TYLENOL) 500 MG tablet Take 1,000 mg by mouth every 6 (six) hours as needed for pain (specific location in comments). 2 Active enoxaparin (LOVENOX) 40 mg/0.4 mL Syrg subcutaneous syringe Inject 40 mg under the skin daily. 2 Active gabapentin (NEURONTIN) 100 MG capsule Take 200 mg by mouth 3 (three) times a day. 2 Active melatonin 3 mg Tab Take 6 mg by mouth nightly at bedtime as needed (insomnia). 2 Active polyethylene glycol (MIRALAX) 17 gram packet Take 17 g by mouth daily as needed (constipation ). 2 Active senna-docusate (PERICOLACE) 8.6-50 mg Take 2 tablets by mouth 2 (two) times a day. 2 Active butalbital-acetam inophen-caffeine (FIORICET, ESGIC) 50-325-40 mg per tablet Take 2 tablets by mouth every 6 (six) hours as needed for headache. 2 Active oxyCODONE HCl 10 mg Tab Take 10 mg by mouth every 4 (four) hours as needed (pain). 2 Active methocarbamoL (ROBAXIN) 750 MG tablet Take 750 mg by mouth 3 (three) times a day. 2 Active thiamine (VITAMIN B-1) 100 MG tablet Take 100 mg by mouth daily. 2 Active folic acid (FOLVITE) 1 MG tablet Take 1 mg by mouth daily. 2 Active cholecalciferol, vitamin D3, 25 mcg (1,000 unit) capsule Take 1,000 Units by mouth daily. 2 Active CALCIUM CARBONATE ORAL Take 500 mg by mouth daily. 2 Active Active Problems No known active problems Social History Tobacco Use Types Packs/Day Years Used Date Smoking Tobacco: Never Smokeless Tobacco: Never Alcohol Use Standard Drinks/Week Comments Yes 0 (1 standard drink = 0.6 oz pur e alcohol) Education Answer Date Recorded Are you interested in more education? Not on nimesh e 03/26/2023 Are you concerned about learning? Not on file 03/26/2023 No 03/26/2023 No 03/26/2023 Digital Access Answer Date Recorded No 04/24/2023 No 04/24/2023 No 04/24/2023 Reliable internet access at home? Not on file 04/24/2023 Device with a working camera? Not on file Sex and Gender Information Value Date Recorded Sex Assigned at Not on file Legal Sex Male 10:32 PM EDT Gender Identity Not on file Sexual Orientation Not on file Last Filed Vital Signs Vital Sign Reading Time Taken Comments Blood Pressure 118/78 02/03/2022 12:55 PM EST Pulse 68 02/03/2022 12:55 PM EST Temperature 36.4 C (97.6 F) 02/03/2022 12:55 PM EST Respiratory Rate 16 02/03/2022 12:55 PM EST Oxygen Saturation 95% 02/03/2022 12:55 PM EST Inhaled Oxygen Concentration - - Weight 73.5 kg (162 lb) 02/01/2022 2:00 PM EST Height 177.8 cm (5' 10 ) 02/01/2022 2:00 PM EST Body Mass Index 23.24 02/01/2022 2:00 PM EST Plan of Treatment Health Maintenance Due Date Last Done Comments LIPID PANEL 1970 DEPRESSION SCREENING 1982 HEPATITIS C SCREENING 1988 HIV ONE-TIME SCREENING (18-6 5 YEARS) 1988 SMOKING STATUS SCREENING (On ce After 26 Yrs) 1996 COLOGUARD 2015 COLONOSCOPY 2015 COLORECTAL CANCER SCREENING 2015 FIT TEST 2015 FOBT 2015 SIGMOIDOSCOPY 2015 VIRTUAL COLONOSCOPY 2015 PNEUMOCOCCAL VACCINES (50+ years) (1 of 1 - PCV) 2020 ZOSTER VACCINES (1 of 2) 2020 INFLUENZA VACCINE (#1) 2025 5, 11/15/2013, 11/09/2012 COVID-19 VACCINE (3 2024-2 6 season) 2025 10/16/2021, 03/05/2021 Adult Td,Tdap Booster 05/17/2031 05/17/2021 , 11/09/2012 HEPATITIS A VACCINES Aged Out No long er eligible based on patient's age to complete this topic HIB VACCINES Aged Out No longer eligi ble based on patient's age to complete this topic MENINGOCOCCAL VACCINES (ACWY) Aged Out No longer eligible based on patient's age to complete this topic MENINGOCOCCAL VACCINES (B) Aged Out N o longer eligible based on patient's age to complete this topic Medical Devices Not on file Insurance [facility] [address] [place], [place] [address] [place], [place] [address] [place], [place] [address]O [facility] HMO Care Teams Manager Ecommerce Relationship Specialty Start Date End Date Leia Romero MD [address] [place] [address] [email or web address] PCP - General Family Medicine 01/18/22 Additional Source Comments The information contained in this document represents components of the legal health record. It is not the complete legal health record.[facility]
--- OUTSIDE RECORDS SUMMARY | 2025-08-30 09:34 | XMS_ITS | Encounter Summary ---
Author Organization [facility] Address [address] [place] [address] Care Team Providers Care Radio Intelligence Operator Name Role Phone Leia Romero MD Primary Care Provider + Bulmaro Chen MD Unavailable [phone] Carine Small MD Unavailable [phone] Encounter Details Date Type Department Care Team (Latest Contact Info) Description 01/14/2022 Hospital Encounter Kaye Stevens MD [address] [address] Social History Tobacco Use Types Packs/Day Years [...] Exposure Response Date Recorded In the last 10 days, have aroldo gutierres been in contact with someone who was confirmed or suspected to have Coronavirus/COVID-19? No / Unsure 06/26/2022 6:05 AM EDT documented as of this encounter Functional Status * Audit-C Score Answer Date of Assessment Author 3 06/16/2022 3:00 PM EDT Wilfredo Avina RN * Question Answer Date of Assessment Author Q1: How often do you have a drink containing alcohol? 2-3 times a week 06/16/2022 3:00 PM EDT Lelo Avina RN Q2: How many drinks containing alcohol do you have on a typical day when you are drinking? 1 or 2 06/16/2022 3:00 PM IZAT Lelo Avina RN Q3: How often do you have six or more drinks on one occasion? Never 06/16/2022 3:00 PM IZAT Lelo Avina RN documented as of this encounter Plan of Treatment Not on file documented as of this encounter Goals Goal Patient Goal Type Associated Problems Recent Progress Patient-Stated? Author PT STG 1 Physical Therapy On track( 024 11:00 AM EDT) No Teresa Cabrera, PT Note: Patient will improve right shoulder [...] are no charges associated with this documentation. documented as of this encounter Visit Diagnoses Not on filedocumented in this encounter Care Teams Radio Intelligence Operator Relationship Specialty Start Date End Date Leia Romero MD [facility] [address] [facility] [address] [place] [address] PCP - General Family Medicine 01/20/22 Bulmaro Chen MD [address] [address] Surgery, Orthopedic 01/20/22 Carine Small MD 85 [facility] 1003 [place] [address] Surgery, Neurosurgery 01/30/22 documented as of this encounter
--- OUTSIDE RECORDS SUMMARY | 2025-08-30 09:34 | XMS_ITS | Encounter Summary ---
Author Organization [facility] Address [address] [place] [address] Care Team Providers Care Contact Center Specialist Name Role Phone Leia Romero MD Primary Care Provider + Bulmaro Chen MD Unavailable [phone] Carine Small MD Unavailable [phone] Encounter Details Date Type Department Care Team (Late st Contact Info) Description 05/19/2024 Scanned Document [facility] 74 [place] [address] Brendan Yun MD [address] [address] Social History Tobacco Use Types Packs/Day Years [...] on filedocumented in this encounter Care Teams Contact Center Specialist Relationship Specialty Start Date End Date Leia Romero MD [facility] [address] [facility] 102 [place] [address] PCP - General Family Medicine 01/20/22 Bulmaro Chen MD 31 [facility] 100 [place] [address] Surgery, Orthopedic 01/20/22 Carine Smlal MD 85 [facility] [address] [place] [address] Surgery, Neurosurgery 01/30/22 documented as of this encounter
--- OUTSIDE RECORDS SUMMARY | 2025-08-30 09:34 | XMS_ITS | Encounter Summary ---
Author Organization [facility] Address 100 [place] [address] Care Team Providers Care Materials Coordinator Name Role Phone Leia Romero MD Primary Care Provider + Bulmaro Chen MD Unavailable [phone] Carine Small MD Unavailable Encounter Details Date Type Department Care Team (Late st Contact Info) Description 02/10/2024 Scanned Document [address] [place] [address] Provider, Generic Social History Tobacco Use Types Packs/Day Years [...] on filedocumented in this encounter Care Teams Materials Coordinator Relationship Specialty Start Date End Date Leia Romero MD [address] [address] PCP - General Family Medicine 01/20/22 Bulmaro Chen MD [address] [address] Surgery, Orthopedic 01/20/22 Carine Small MD 85 [facility] 100[address] [place] [address] Surgery, Neurosurgery 01/30/22 documented as of this encounter
--- OUTSIDE RECORDS SUMMARY | 2025-08-30 09:34 | XMS_ITS | Encounter Summary ---
Author Organization [facility] Address [address] [place] [address] Care Team Providers Care Instructional Systems Designer Name Role Phone Leia Romero MD Primary Care Provider + Bulmaro Chen MD Unavailable [phone] Carine Small MD Unavailable [phone] Encounter Details Date Type Department Care Team ([facility] st Contact Info) Description 11/08/2024 Scanned Document [facility] [address] [phone] Brendan Yun MD [address] [place] [id number] Social History Tobacco Use Types Packs/Day Years [...] PT STG 1 Physical Therapy On track( 11:00 AM EDT) No Teresa Cabrera PT Note: Patient will improve right shoulder [...] PT LTG 1 Physical Therapy On track( 11:00 AM EDT) No Teresa Cabrera, PT [...] on filedocumented in this encounter Care Teams Instructional Systems Designer Relationship Specialty Start Date End Date Leia Romero MD [address] [address] PCP - General Family Medicine 01/20/22 Bulmaro Chen MD [address] [place] [address] Surgery, Orthopedic 01/20/22 Carine Small MD [address] [place] [address] Surgery, Neurosurgery 01/30/22 documented as of this encounter
--- OUTSIDE RECORDS SUMMARY | 2025-08-30 09:34 | XMS_ITS | Encounter Summary ---
Author Organization [facility] Address [address] [place] [address] Care Team Providers Care Financial Services Officer Name Role Phone Leia Romero MD Primary Care Provider + Bulmaro Chen MD Unavailable [phone] Carine Small MD Unavailable [phone] Encounter Details Date Type Department Care Team (Late st Contact Info) Description 02/24/2022 Scanned Document [facility] Neurosurgery [place] [address] [phone] Carine Small MD 85 [facility] [place] [address] [place] [address] Social History Tobacco Use Types Packs/Day Years [...] have Coronavirus / COVID-19? No / Unsure 01/30/2022 6:03 AM EST documented as of this encounter Plan of Treatment Not on file documented as of this encounter Visit Diagnoses Not on filedocumented in this encounter Care Teams Financial Services Officer Relationship Specialty Start Date End Date Leia Romero MD [place] [id number] [address] PCP - General Family Medicine 01/20/22 Bulmaro Chen MD [address] [address] Surgery, Orthopedic 01/20/22 aCrine Small MD [address] [address] Surgery, Neurosurgery 01/30/22 documented as of this encounter
--- OUTSIDE RECORDS SUMMARY | 2025-08-30 09:34 | XMS_ITS | Clinical Summary ---
Author Organization [facility] Address [address] [place] [address] Care Team Providers Care Guard [employer] Name Role Phone Leia Romero MD Primary Care Provider [phone] Allergies Active Allergy Reactions Criticality Noted Date Comments Latex Itching Medium 12/19/2024 Medications No known medications Medical History Medical History Date Comments Right shoulder pain Social History Tobacco Use Types Packs/Day Years Used Date Smoking Tobacco: Never Smokeless Tobacco: Never Sex and Gender Information Value Date Recorded Sex Assigned at Male 12/17/2024 9:18 AM EST Legal Sex Male 9:56 AM EST Gender Identity Male 12/17/2024 9:18 AM EST Sexual Orientation Straight 12/19/2024 6: 39 AM EST Obstetrics History Last Filed Vital Signs Vital Sign Reading Time Taken Comments Blood Pressure 144/90 12/19/2024 8:03 AM EST Pulse 70 12/19/2024 8:03 AM EST Temperature 36.5 C (97.7 F) 12/19/2024 8:03 AM EST Respiratory Rate 14 12/19/2024 8:03 AM EST Oxygen Saturation 98% 12/19/2024 8:03 AM EST Inhaled Oxygen Concentration - - Weight - - Height - - Body Mass Index - - Plan of Treatment Health Maintenance Due Date Last Done Comments Hepatitis B Vaccines (1 of 3 - 19+ 3-dose series) 1989 Pneumococcal Vaccine: 50+ Years (1 of 1 - PCV) 2020 Zoster Vaccines (1 of 2) 2020 Cholesterol Screening (Lipid Panel) 10/02/2024 Colorectal Cancer Screening: Colonoscopy 10/02/2024 HIV Screening 10/02/2024 Hepatitis C Screening 10/02/2024 Social Influencers of Health Screening 10/02/2024 Depression Screening 11/29/2024 COVID-19 Vaccine (2024-2 6 season) 2025 07/17/2022, 10/16/2021, 03/05/2021 Influenza Vaccine (#1) 2025 5, 11/15/2013, 11/09/2012 DTaP,Tdap,and Td Vaccines (3 - Td or Tdap) 05/17/2031 05/17/2021, 11/09/2012 HIB Vaccines Aged Out No longer eligi ble based on patient's age to complete this topic HPV Vaccines Aged Out No longer eligi ble based on patient's age to complete this topic Hepatitis A Vaccines Aged Out No long er eligible based on patient's age to complete this topic IPV Vaccines Aged Out No longer eligi ble based on patient's age to complete this topic MMR Vaccines Aged Out No longer eligi ble based on patient's age to complete this topic Meningococcal ACWY Vaccine Aged Out N o longer eligible based on patient's age to complete this topic Meningococcal B Vaccine Aged Out No l onger eligible based on patient's age to complete this topic RSV Immunization Patients Under 20 months Aged Out No longer eligible b ased on patient's age to complete this topic Varicella Vaccines Aged Out No longer eligible based on patient's age to complete this topic Insurance [facility] Care Teams Guard Museum Relationship Specialty Start Date End Date [facility] [place] [address] PCP - General Family Medicine 12/19/24
--- OUTSIDE RECORDS SUMMARY | 2025-08-30 09:34 | XMS_ITS | Encounter Summary ---
Author Organization [facility] Address [address] [place] [address] Care Team Providers Care Director Sales Support Name Role Phone Leia Romero MD Primary Care Provider + Bulmaro Chen MD Unavailable [phone] Carine Small MD Unavailable [phone] Encounter Details Date Type Department Care Team (Late st Contact Info) Description 06/24/2022 Erroneous Encounter [facility] [address] [place] [id number] Provider, MD Jony Social History Tobacco Use Types Packs/Day Years [...] Recorded In the last 10 days, have yo u been in contact with someone who was confirmed or suspected to have Coronavirus/COVID-19? No / Unsure 06/26/2022 6:05 AM EDT documented as of this encounter Plan of Treatment Not on file documented as of this encounter Visit Diagnoses Not on filedocumented in this encounter Care Teams Director Sales Support Relationship Specialty Start Date End Date Leia Romero MD [facility] [address] [facility] [address] [place] [address] PCP - General Family Medicine 01/20/22 Bulmaro Chen MD [address] [facility] [address] [place] [address] Surgery, Orthopedic 01/20/22 Carine Small MD [address] [facility] [address] [place] [address] Surgery, Neurosurgery 01/30/22 documented as of this encounter
[2025-08-30] MEDS: diazePAM 10 MG/2 ML CARTRIDGE 2.5 MG IVPUSH (09:40)
[2025-08-30] MEDS: oxyCODONE HCl ER 10 MG TAB.ER.12H PO (11:28)
[2025-08-30] MEDS: Morphine Sulfate Immed Release 15 MG TABLET PO (11:29)
--- NOTE | 2025-08-30 11:39 | PC.NURSE ---
Initial contact w/ pt, pt continues to c/o 09/07 back pain, states I cant feel my right foot . Provider made aware and new med orders received. Pt medicated for pain relief.
--- NOTE | 2025-08-30 13:45 | PHA.MEDREC ---
Addendum entered by Aric Ramirez PharmD 08/30/25 13:54: reviewed Original Note: Pharmacy Consult ? Medication Reconciliation Pharmacy has completed the medication reconciliation. Spoke with pt and he confirmed his medications. Pt taking Mens 50+ Multivitamin and a Probiotic (pt doesn't remember dose of) once daily and was told to hold those yesterday for a surgery the pt is getting next week.
--- NOTE | 2025-08-30 14:01 | PM.IMHP ---
History of Present Illness Date of Service: 08/30/25 Attending physician on admission: Luciano Cuba Chief Complaint: back pain This is a 54-year-old female with history of chronic back pain who presents to the emergency department with back pain. Patient states that he has long history of back pain however his back pain has been worse over the past 4-6 weeks. He saw his primary care provider about 1 month ago who ordered an outpatient MRI. His MRI was declined by insurance. He has been unable to participate in physical therapy due to the degree of his symptoms. He continues to have persistent pain starting at his right buttock and radiating down his right leg. He has intermittent buckling of his right leg and he states that his leg into his foot is always tingly and ?partially numb?. Today his right leg completely gave out and he was unable to get up due to the severity of his pain. Shortly after that he began losing feeling in both of his legs both of his arms as well as his face and began hyperventilating. He states that his hands were squeezing and he was unable to open them. He initially came in as a stroke alert due to symptoms of right leg pain and tingling. There were no acute neurological symptoms noted. Brain CT showed no acute intracranial hemorrhage, bifrontal lobe encephalomalacia concerning for prior injury. Head/neck CTA with no main the cerebral artery occlusion or embolus, no high-degree stenosis or dissection. Lumbar spine CT scan showed no acute fracture but bulging discs at L3-4 and L4-5 with no high-grade central canal stenosis. He received multiple doses of IV pain medication including IV Dilaudid, IV ketorolac, Valium, OxyContin, oral morphine as well as IV Decadron but continued to have substantial pain in his back and right leg. He denies loss of bladder/bowel control, reports no saddle anesthesia. Alcohol level was 13 on arrival, he reports drininkg 4-5 days per week 2-6 drinks at a time. He denies history of alcohol withdrawal. Review of Systems Review of Systems: Yes all other systems are reviewed and are negative Constitutional: Constitutional: Denies chills and Denies fever(s) Cardiovascular: Cardiovascular: Denies chest pain, Denies palpitations and Denies dyspnea Respiratory: Respiratory: Denies cough and Denies dyspnea Gastrointestinal: Gastrointestinal: Denies abdominal pain, Denies diarrhea, Denies nausea and Denies vomiting Endocrine: Endocrine: Denies palpitations PMFSH Surgical History (Updated 08/30/25 @ 15:05 by RAMAN Pack) H/O spinal fusion Social History (Updated 08/30/25 @ 15:05 by RAMAN Pack) Alcohol intake: current Alcohol intake frequency: a few times a week Alcohol type: beer Comment: 4-5 days per week Patient Tobacco Use Status: Never used Tobacco Smoked in Last 30 Days: No Use of substances other than those prescribed or required for medical reasons: No Advance Directives: No Advance Directives Information Provided: Yes Meds Allergies Allergy/AdvReac Type Severity Reaction Status Date / Time No Known Allergies Allergy Verified 08/30/25 08:12 Home Medications ?Medication ?Instructions ?Recorded ?Confirmed ?Last Taken ?Type lisinopril 5 mg tablet 5 mg PO DAILY 08/30/25 08/30/25 08/30/25 History Physical Exam Vital Signs and Narrative: Vital Signs: Last Vital Signs Temp 97.5 F 08/30/25 08:32 Pulse 68 08/30/25 09:17 Resp 16 08/30/25 09:17 BP 145/68 H 08/30/25 09:17 Pulse Ox 98 08/30/25 09:17 O2 Del Method Room Air 08/30/25 09:17 BMI result Body Mass Index 25.8 Const: General: alert and awake Nutritional Appearance: average body habitus Orientation/consciousness: patient oriented x3 Resp: Effort & Inspection: normal respiratory effort, able to speak in complete sentences, no respiratory distress and no use of accessory muscles Cardio: Rate: regular rate GI: Palpation (GI): Soft to palpation and nontender Neuro: General: patient oriented x3 and CN's II-XI intact bilaterally Extrem: Other: no midline spine tenderness; tender right glute with pain radiating down back to right leg with straight leg raise. Results Labs 08/30/25 08:05 08/30/25 08:05 Labs: Laboratory Results - last 24 hr 08/30/25 08/30/25 08/30/25 07:59 08:02 08:05 MCV 89.7 MCH 33.3 H MCHC 37.1 H RDW 11.8 Plt Count 234 MPV 8.9 L Immature Gran % (Auto) 0.2 Neut % (Auto) 35.4 L Lymph % (Auto) 47.7 H Davidson % (Auto) 10.0 Eos % (Auto) 6.2 H Baso % (Auto) 0.5 Lymph # (Auto) 2.9 Davidson # (Auto) 0.6 Eos # (Auto) 0.4 Baso # (Auto) 0.0 Abs Immat Gran (auto) 0.01 Absolute Neuts (auto) 2.1 Absolute Nucleated RBC 0.000 Nucleated RBC % (auto) 0.0 Hold Purple Top SEE NOTE PT 10.8 L Whole Blood PT 12.4 INR 0.9 Whole Blood INR 1.0 APTT 28.1 Anion Gap 20 Estim Creat Clear Calc 98.8 Estimated GFR > 60 POC Glucose 100 Random Glucose 126 H Calcium 9.6 Magnesium 2.1 Total Bilirubin 0.4 Direct Bilirubin 0.2 AST 45 H ALT 32 Alkaline Phosphatase 70 Troponin I High Sens < 2.7 Total Protein 8.5 H Albumin 4.9 Triglycerides 130 Cholesterol 269 H LDL Cholesterol, Calc 187 H HDL Cholesterol 56 Lipase 23 Ethyl Alcohol 13 Imaging Radiologist's Impressions: Impressions Head CT 08/30/25 08:00 IMPRESSION: No acute intracranial hemorrhage. Bifrontal lobe encephalomalacia concerning prior injury versus prior vascular insult ANUM territory. Disorder CT angiogram head and neck. This critical result was discussed with emergency physician Dr. Gabo Roca at 8:25 AM hours on August 30, 2025. It was ascertained that the content and urgency of the report was understood at the time of direct communication. Electronically signed by: Teo Gay MD 08/30/2025 08:27 AM EDT RP Head/Neck CTA 08/30/25 08:13 IMPRESSION: No main cerebral artery occlusion or embolus. No high degree stenosis or dissection, extracranial arteries. 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 This critical test result is communicated to: Emergency physician Dr. Gabo Roca via [employer] at 9:03 AM on August 30, 2025. Electronically signed by: Teo Gay MD 08/30/2025 09:03 AM EDT RP Lumbar Spine CT 08/30/25 08:13 IMPRESSION: 1. There are no acute fractures or acute bony abnormalities of the lumbar spine. 2. There are bulging discs at L3-4, and L4-5 as discussed. No high-grade central canal stenosis is evident. 3. There has been prior fusion at L5-S1 without complication evident. There is bony fusion through the disc space. Electronically signed by: Bryan Cavanaugh MD 08/30/2025 09:15 AM EDT RP Assessment and Plan (1) Back pain: Status: Acute Plan This is a 54-year-old male with history of hypertension, chronic back pain, history of spinal fusion at L5-S1, alcohol use who presents to the emergency department with back pain and right leg pain back pain/right leg pain due to sciatica CT scan showing bulging discs at L3-4 and L4-5 likely cause of symptoms No red flag symptoms Neurology consult MRI lumbar spine IV decadron and IVtoradol; IV morphine for severe breakthrough pain PT evaluation Word-finding difficulty Resolved Initially came in as stroke alert Right leg symptoms seem to be due to above rather than stroke Word-finding difficulty in the setting of what sounds like panic attack, less likely TIA Brain CT negative for acute changes, CTA with no LVO; CT showing concern for old stroke - reasonable to start baby asa and statin; LDL elevated at 187 Neuro checks, PT/OT eval, neuro eval - defer further brain imaging to neurology etoh use disorder reports frequent etoh use, denies h/o etoh withdrawal etoh level 13 this am does not appear to be in etoh withdrawal at this time Follow CIWA thiamine/folic acid supplementation HTN Continue lisinopril DVT prophylaxis-mechanical devices Quality Stroke Does the patient have a stroke diagnosis?: No VTE Prior VTE?: No VTE Risk Level:: Medical - moderate - high VTE Device Contraindication: N/A - Device Ordered VTE Drug Contraindication: Treatment Not Indicated
--- NOTE | 2025-08-30 14:27 | PC.NURSE ---
Pt has extensive pmhx of back surgeries w/ plate and bulging discs. This am while walking across the room his right leg gave out and he was unable to speak . Pt came into ED as STROKE alert and was immediately downgraded upon arrival. Pt c/o 10/10 low back pain and was treated quite aggressively in the ED w/ iv steroids, iv and oral pain meds, but pt continues to c/o 10/10 pain and unable to feel R leg . Pt being admitted for pain control and MRI. MRI screening form already completed.
[2025-08-30] MEDS: Aspirin Enteric Coated 81 MG TABLET.DR PO (18:49)
[2025-08-30] MEDS: 0.9 % Sodium Chloride Flush 3 ML SYRINGE IVFLUSH (21:26)
[2025-08-31] VITALS (7 sets, daily range): BP systolic 109–141; BP diastolic 58–82; PULSE 56–70; RESP 16–20; TEMP 36.2–36.6; O2SAT 93–96
[2025-08-31] MEDS: 0.9 % Sodium Chloride Flush 3 ML SYRINGE IVFLUSH ×3 (09:23→22:01)
[2025-08-31] MEDS: Aspirin Enteric Coated 81 MG TABLET.DR PO (09:23)
--- NOTE | 2025-08-31 11:23 | PM.NEUROCN ---
History of Present Illness Data of Consult Service Date: 08/31/25 Primary Care Provider: Leia Romero MD [facility] Reason for consult: Back pain 54 years old man who has been drinking heavily for years, frequently 4-5 alcoholic beverages a day, came to hospital with worsening of chronic back pain and leg weakness. He complain of having numbness and tingling feeling in his legs arms face and body. Head CT and CTA of lumbar spine most done and he was admitted for further evaluation. When I saw him he was with a sister and girlfriend and was not in any distress. There was no loss of bowel bladder control. No history of recent trauma. Review of Systems Review of Systems: No recent cold or flu-like illness or trauma. [facility] Surgical History Surgical History H/O spinal fusion Social History Social History (Updated 08/30/25 @ 15:05 by RAMAN Pack) Household Members: Family Housing: House Do you presently have visiting nurse or other home services: No Alcohol intake: current Alcohol intake frequency: a few times a week Alcohol type: beer Comment: 4-5 days per week Patient Tobacco Use Status: Never used Tobacco Smoked in Last 30 Days: No Use of substances other than those prescribed or required for medical reasons: No Currently Displaying Signs/Symptoms of Drug Intoxication Withdrawal: No Do you feel safe in your current relationship?: Yes Is there a partner from a previous relationship who is making you feel unsafe now?: No Advance Directives: No Advance Directives Information Provided: Yes Recently lost weight without trying: No Eating poorly because of decreased appetite: No Nutrition Risks: No Nutritional Risk Poor oral hygiene: No Meds Allergies Allergy/AdvReac Type Severity Reaction Status Date / Time No Known Allergies Allergy Verified 08/30/25 08:12 Active Medications: Current Medications Acetaminophen (Acetaminophen 325 Mg Tablet) 650 mg PO Q6H PRN PRN Reason: Pain, Mild 1-3,fever,headache Aspirin (Aspirin Enteric Coated 81 Mg Tablet.) 81 mg PO DAILY [facility] Last Admin: 08/31/25 09:23 Dose: 81 mg Atorvastatin Calcium (Atorvastatin Calcium 40 Mg Tablet) 40 mg PO BEDTIME [facility] Last Admin: 08/30/25 21:26 Dose: 40 mg Calcium Carbonate (Calcium Carbonate 750 Mg Tab.Chew) 750 mg PO Q4H PRN PRN Reason: Heartburn Dexamethasone Sodium Phosphate (Dexamethasone Sod Phosphate 4 Mg/Ml Vial) 6 mg IVPUSH Q8H [facility] Last Admin: 08/31/25 09:23 Dose: 6 mg Folic Acid (Folic Acid 1 Mg Tablet) 1 mg PO DAILY [facility] Last Admin: 08/31/25 09:24 Dose: 1 mg Ketorolac Tromethamine (Ketorolac Tromethamine 30 Mg/Ml Vial) 15 mg IVPUSH Q6H PRN PRN Reason: Pain, Moderate(Pain Scale 4-6) Last Admin: 08/30/25 19:01 Dose: 15 mg Lisinopril (Lisinopril 5 Mg Tablet) 5 mg PO DAILY [facility]; Protocol Last Admin: 08/31/25 09:24 Dose: 5 mg Magnesium Hydroxide (Milk Of Magnesia 30 Ml Oral.Susp) 30 ml PO DAILY PRN PRN Reason: Constipation Melatonin (Melatonin 3 Mg Tablet) 6 mg PO BEDTIME PRN PRN Reason: Insomnia Morphine Sulfate (Morphine Sulfate 4 Mg/Ml Cartridge) 2 mg IVPUSH Q3H PRN; Protocol PRN Reason: Pain, Severe (Pain Scale 7-10) Last Admin: 08/31/25 06:12 Dose: 2 mg Sodium Chloride (0.9 % Sodium Chloride Flush 3 Ml Syringe) 3 ml IVFLUSH QSHIFT [facility] Last Admin: 08/31/25 09:23 Dose: 3 ml Thiamine HCl (Thiamine Hcl 100 Mg Tablet) 100 mg PO DAILY [facility] Last Admin: 08/31/25 09:24 Dose: 100 mg Home Medications ?Medication ?Instructions ?Recorded ?Confirmed ?Last Taken ?Type lisinopril 5 mg tablet 5 mg PO DAILY 08/30/25 08/30/25 08/30/25 History Physical Exam Vital Signs: Vital Signs: Last Vital Signs Temp 97.9 F 08/31/25 11:07 Pulse 70 08/31/25 11:07 Resp 20 08/31/25 11:07 BP 124/64 08/31/25 11:07 Pulse Ox 96 08/31/25 11:07 O2 Del Method Room Air 08/31/25 11:07 BMI result Body Mass Index 25.8 Neuro: Other: He is alert and awake with normal spontaneity of speech fluency comprehension and anxious affect. Face is flushed. Extraocular muscles were intact. Visual nicolas are full. There was no pronator drift. Zfelpg-gt-olgm testing revealed mild bilateral ataxia. Xubl-pg-kvrn testing is okay. Deep tendon reflexes are absent with withdrawing plantars. Joint position sensation is okay in toes. Speech is normal. Results Labs 08/30/25 08:05 08/30/25 08:05 Labs: His head CT revealed mild diffuse cerebral atrophy and a chronic right frontal hypodensity probably encephalomalacia. Radiologist also mentioned probably 1.5 mm aneurysm. Assessment and Plan (1) Alcoholism: Status: Acute (2) Back pain: Qualifiers: Back pain location: low back pain Chronicity: chronic Back pain laterality: bilateral Sciatica presence: without sciatica Qualified Code(s): M54.50 - Low back pain, unspecified; G89.29 - Other chronic pain Status: Acute 54 years old man with chronic alcoholism came to hospital with complain of chronic back pain that worsened and also weakness of legs and numbness and paresthesias all over his body. Examination revealed anxious affect and signs of chronic peripheral neuropathy. Imaging revealed mild cerebellar atrophy, chronic right frontal encephalomalacia probably posttraumatic, and a tiny aneurysm. CTA of lumbar spine revealed multilevel disc osteophyte complexes narrowing foraminal spaces. I recommend followin. Reassurance and education and appropriate referral for alcoholism 2. Thiamine 100 mg a day and folate 1 mg daily with B complex vitamin 3. Noncontrast lumbosacral spine MRI based upon which 1 could figure out proper course of action for back pain, epidural injection versus surgery. 4. Avoid habit-forming medicines 5. Referral to behavioral therapy as anxiety/panic disorder would continue to affect him. Procedures Date of Service Date of Service: 08/31/25
--- NOTE | 2025-08-31 11:38 | MHC.CM.PN ---
Addendum entered by Sahara Ramsey RN 08/31/25 11:46: SHIPLEY 08/31/25 DELIVERED TO BEDSIDE. Addendum entered by Sahara Ramsey RN 08/31/25 11:45: O.TLety ARTHUR ALSO STATES NO SERVICES INDICATED AT THIS TIME. Original Note: EMR REVIEWED, PT W/RADIATING BACK PAIN/SCIATICA AND ?TIA, MRI PENDING, CM MET W/PT W/SISTER/HCP TRACY AND G.F. PRESENT AT BEDSIDE, PT REPORTS HE LIVES W/HIS SON AND G.F., WORKS/DRIVES, FULLY INDEP W/ALL CARE, NO DME/SERVICES. PER P.TLety ARTHUR NO SERVICES INDICATED AT THIS TIME. PT VERIFIES PCP ON FILE IS CORRECT, PT REPORTS HIS SISTER TRACY SY [phone] IS HCP AND WAS DONE W/CAP MAKER, COPY REQUESTED. PT'S GOAL AND DC PLAN IS HOME NO SERVICES, FAMILY WILL TRANSPORT
--- NOTE | 2025-08-31 13:37 | P.PNIM_ITS ---
Subjective Subjective Date of Service: 08/31/25 Interval History: No acute issues overnight. Essentially no change since admission Review of Systems Denies chest pain Denies shortness of breath Denies nausea vomiting diarrhea Denies fever chills Physical Exam 2 Vital Signs: Vital Signs: Last Vital Signs Temp 97.9 F 08/31/25 11:07 Pulse 70 08/31/25 11:07 Resp 20 08/31/25 11:07 BP 124/64 08/31/25 11:07 Pulse Ox 96 08/31/25 11:07 O2 Del Method Room Air 08/31/25 11:07 BMI result Body Mass Index 25.8 Const: Other: Awake alert no acute distress Resp: Other: Clear to auscultation bilaterally no rales rhonchi or wheezes Cardio: Other: No S4; positive S1-S2; no S3 murmurs rubs or gallops GI: Other: Soft nontender nondistended normoactive bowel sounds Extrem: Other: No edema bilaterally Objective Data Active Medications Acetaminophen (Acetaminophen 325 Mg Tablet) 650 mg PO Q6H PRN PRN Reason: Pain, Mild 1-3,fever,headache Aspirin (Aspirin Enteric Coated 81 Mg Tablet.) 81 mg PO DAILY [facility] Last Admin: 08/31/25 09:23 Dose: 81 mg Documented By: KAILA Atorvastatin Calcium (Atorvastatin Calcium 40 Mg Tablet) 40 mg PO BEDTIME [facility] Last Admin: 08/30/25 21:26 Dose: 40 mg Documented By: PETEWALM Calcium Carbonate (Calcium Carbonate 750 Mg Tab.Chew) 750 mg PO Q4H PRN PRN Reason: Heartburn Dexamethasone Sodium Phosphate (Dexamethasone Sod Phosphate 4 Mg/Ml Vial) 6 mg IVPUSH Q8H [facility] Last Admin: 08/31/25 09:23 Dose: 6 mg Documented By: KAILA Folic Acid (Folic Acid 1 Mg Tablet) 1 mg PO DAILY [facility] Last Admin: 08/31/25 09:24 Dose: 1 mg Documented By: KAILA Ketorolac Tromethamine (Ketorolac Tromethamine 30 Mg/Ml Vial) 15 mg IVPUSH Q6H PRN PRN Reason: Pain, Moderate(Pain Scale 4-6) Last Admin: 08/31/25 11:41 Dose: 15 mg Documented By: KAILA Lisinopril (Lisinopril 5 Mg Tablet) 5 mg PO DAILY [facility]; Protocol Last Admin: 08/31/25 09:24 Dose: 5 mg Documented By: KAILA Magnesium Hydroxide (Milk Of Magnesia 30 Ml Oral.Susp) 30 ml PO DAILY PRN PRN Reason: Constipation Melatonin (Melatonin 3 Mg Tablet) 6 mg PO BEDTIME PRN PRN Reason: Insomnia Morphine Sulfate (Morphine Sulfate 4 Mg/Ml Cartridge) 2 mg IVPUSH Q3H PRN; Protocol PRN Reason: Pain, Severe (Pain Scale 7-10) Last Admin: 08/31/25 06:12 Dose: 2 mg Documented By: EDWIN Sodium Chloride (0.9 % Sodium Chloride Flush 3 Ml Syringe) 3 ml IVFLUSH QSHIFT [facility] Last Admin: 08/31/25 09:23 Dose: 3 ml Documented By: KAILA Thiamine HCl (Thiamine Hcl 100 Mg Tablet) 100 mg PO DAILY [facility] Last Admin: 08/31/25 09:24 Dose: 100 mg Documented By: KAILA Labs 08/30/25 08:05 08/30/25 08:05 Assessment and Plan (1) Back pain: Status: Acute Plan This is a 54-year-old male with history of hypertension, chronic back pain, history of spinal fusion at L5-S1, alcohol use who presents to the emergency department with back pain and right leg pain 1.Back pain/right leg pain -CT scan showing bulging discs at L3-4 and L4-5 likely cause of symptoms -IV decadron Q8H -PT evaluation -MRI lumbar soine 2.Etoh use disorder -Follow [facility] -thiamine/folic acid supplementation 3.HTN -acceptable control on current therapies -adjust as indicated DVT prophylaxis-mechanical devices Patient requires ongoing hospitalization to treat acute low back pain; requires MRI. Patient failed outpatient therapies. High risk for outpatient failure Quality Stroke Does the patient have a stroke diagnosis?: No VTE Prior VTE?: No VTE Risk Level:: Medical - moderate - high VTE Device Contraindication: N/A - Device Ordered VTE Drug Contraindication: Treatment Not Indicated
[2025-09-01 03:58] VITALS: BP 120/63; PULSE 56; RESP 16; TEMP 36.7; O2SAT 97
[2025-09-01 07:44] VITALS: BP 129/79; PULSE 57; RESP 19; TEMP 36.2; O2SAT 95
--- NOTE | 2025-09-01 11:09 | PM.DS ---
DS: Providers Provider Date of Service: 09/01/25 Date of admission: 08/30/25 12:47 Date of discharge: 09/01/25 Primary care physician: Leia Romero MD Consults: 08/30/25 13:56 Consult to Neurology Routine Consulting Provider: [facility] Reason for consultation: right leg weakness, back pain; ?word finding difficulty Has provider been notified: No DS: Diagnosis Discharge Diagnosis (1) Back pain: Status: Acute (2) Lumbar radiculopathy, acute: Status: Acute DS: Summary Hospital Course Hospital Course: 54-year-old female with history of chronic back pain who presents to the emergency department with back pain. Patient states that he has long history of back pain however his back pain has been worse over the past 4-6 weeks. He saw his primary care provider about 1 month ago who ordered an outpatient MRI. His MRI was declined by insurance. He has been unable to participate in physical therapy due to the degree of his symptoms. He continues to have persistent pain starting at his right buttock and radiating down his right leg. He has intermittent buckling of his right leg and he states that his leg into his foot is always tingly and ?partially numb?. Today his right leg completely gave out and he was unable to get up due to the severity of his pain. Shortly after that he began losing feeling in both of his legs both of his arms as well as his face and began hyperventilating. He states that his hands were squeezing and he was unable to open them. He initially came in as a stroke alert due to symptoms of right leg pain and tingling. There were no acute neurological symptoms noted. Brain CT showed no acute intracranial hemorrhage, bifrontal lobe encephalomalacia concerning for prior injury. Head/neck CTA with no main the cerebral artery occlusion or embolus, no high-degree stenosis or dissection. Lumbar spine CT scan showed no acute fracture but bulging discs at L3-4 and L4-5 with no high-grade central canal stenosis. He received multiple doses of IV pain medication including IV Dilaudid, IV ketorolac, Valium, OxyContin, oral morphine as well as IV Decadron but continued to have substantial pain in his back and right leg. He denies loss of bladder/bowel control, reports no saddle anesthesia. Alcohol level was 13 on arrival, he reports drininkg 4-5 days per week 2-6 drinks at a time. He denies history of alcohol withdrawal. Hospital Course Patient admitted to telemetry where monitor failed to demonstrate any acute dysrhythmias. He was started on IV Decadron 6 mg q.6 hours. Seen in consultation by Neurology. MRI was done which showed central disc bulging at L4. Patient has appointment with his own neurologist on 09/04. House neurologist stated that was appropriate no further input. He was seen by Physical therapy and deemed not a candidate. At this point he is up and walking in notes improvement with the Decadron. His MRI we will be put on disc and he will leave with it so that he may follow up with his neurologist 09/04 as scheduled. He will complete a Decadron taper as outlined and he will be given oxycodone 5 mg 20. For occasional pain. Time Attestation Discharge Coordination Time (in mins): 35 Quality: Safe Use of Opioids Does Pt have an Active Cancer Diagnosis on the Problem List?: No Quality: Stroke Does the patient have a stroke diagnosis?: No Physical Exam Vital Signs: Vital Signs: Last Vital Signs Temp 97.1 F 09/01/25 07:44 Pulse 57 09/01/25 07:44 Resp 19 09/01/25 07:44 BP 129/79 09/01/25 07:44 Pulse Ox 95 09/01/25 07:44 O2 Del Method Room Air 09/01/25 07:44 BMI result Body Mass Index 25.8 Const: Other: Awake alert no acute distress Resp: Other: Clear to auscultation bilaterally no rales rhonchi or wheezes Cardio: Other: No S4; positive S1-S2; no S3 murmurs rubs or gallops GI: Other: Soft nontender nondistended normoactive bowel sounds Extrem: Other: No edema bilaterally Discharge Plan Discharge Anticipated Discharge Date/Time: 09/01/25 10:59 Patient Disposition: Home, Self-Care Discharge Diagnosis: Lumbar radiculopathy Referrals: Leia Romero MD [Primary Care Provider, Internal Medicine] - 1 Week Discharge Medications: New oxycodone 5 mg tablet 5 mg PO Q6H PRN (Reason: pain) Qty: 20 0RF Rx Instructions: Partial Fill upon patient request. dexamethasone 4 mg tablet See Rx Instructions .ROUTE .COMPLEX Qty: 18 0RF Rx Instructions: 4 mg orally: 1 tab p.o. t.i.d. x3 days; 1 tab p.o. b.i.d. x3 days; 1 tab p.o. daily x3 days Continued lisinopril 5 mg tablet 5 mg PO DAILY Discharge Orders: Discharge Order (Routine); Ordered 09/01/25 Ordered By: Luciano Cuba Diet: Advance to usual diet Activity on Discharge: As tolerated Stand Alone Forms: Patient Portal Discharge page Print Language: Mohawk Care Plan Goals: Continue lisinopril as taken prior to hospital. Decadron taper has been sent to your pharmacy. Complete this as directed. Oxycodone 20. Has been sent to your pharmacy. Take as needed for pain Health Concerns: Call 09/03 and asked for Radiology. Asked them to put your MRI on a CD so he can take it to your neurologist Plan of Treatment: Follow up with your neurologist as scheduled 09/04. Follow up with the PCP next available Assessment: See discharge summary
--- NOTE | 2025-09-01 11:28 | MHC.CM.PN ---
Pt has been medically cleared to [place], he will go home via family transport, plan is self care.
[2025-09-01 11:34] VITALS: BP 123/68; PULSE 60; RESP 20; TEMP 36.2; O2SAT 96
[2025-09-01 12:02] VITALS: BP 123/68
[2025-09-01] MEDS: Aspirin Enteric Coated 81 MG TABLET.DR PO (12:02)
[2025-09-01] MEDS: 0.9 % Sodium Chloride Flush 3 ML SYRINGE IVFLUSH (12:03)
== END 2025-09-01 13:23 | disposition home or self-care (01) ==
LOC: HO.ED 09:20 → HO.EDOVER 12:47 → HO.IMC 20:16
PROVIDERS: Admitting Provider Hospitalist; Emergency Provider Emergency Medicine; PCP Family Medicine; Visit Provider Hospitalist
DX: M54.16 Radiculopathy, lumbar region (principal); R53.1 Weakness; R47.9 Unspecified speech disturbances; R20.2 Paresthesia of skin; M54.50 Low back pain, unspecified; I10 Essential (primary) hypertension; Y90.0 Blood alcohol level of less than 20 mg/100 ml; G89.29 Other chronic pain; F10.20 Alcohol dependence, uncomplicated; Z98.1 Arthrodesis status; Z79.899 Other long term (current) drug therapy
CPT/HCPCS: 36415; 70450; 70496; 70498; 72132; 72148; 80048; 80061; 80076; 80307; 82947; 83690; 83735; 84484; 85025; 85610; 85730; 93005; 96361; 96374; 96375; 96376; 97161; 97165; 99222; 99285; J1100; J1171; J1885; J2270; J2405; J3360; Q9967

== ENCOUNTER → 2025-08-30 08:07 | Outpatient (BNV) | payer OTHER, SELFPAY | PROVIDERS: Admitting Provider Hospitalist; Emergency Provider Emergency Medicine; PCP Family Medicine; Visit Provider Internal Medicine | DX: R94.31 Abnormal electrocardiogram [ECG] [EKG] (principal); I63.9 Cerebral infarction, unspecified | CPT/HCPCS: 93010 ==

== ENCOUNTER → 2025-08-30 08:07 | Outpatient (BNV) | payer OTHER, SELFPAY | PROVIDERS: Emergency Provider Emergency Medicine; PCP Family Medicine; Visit Provider Radiology Diagnostic Radiology | DX: R20.0 Anesthesia of skin (principal); R47.9 Unspecified speech disturbances; R53.1 Weakness; M51.26 Other intervertebral disc displacement, lumbar region; M43.27 Fusion of spine, lumbosacral region; G93.89 Other specified disorders of brain | CPT/HCPCS: 70450; 70496; 70498; 72132 ==

== ENCOUNTER 2025-08-30 12:47 | Outpatient (BNV) | payer OTHER, SELFPAY | END 2025-08-31 14:35 | PROVIDERS: Admitting Provider Hospitalist; Emergency Provider Emergency Medicine; PCP Family Medicine; Visit Provider Radiology Diagnostic Radiology | DX: M54.50 Low back pain, unspecified (principal); M79.662 Pain in left lower leg; R53.1 Weakness | CPT/HCPCS: 72148 ==

== ENCOUNTER → 2025-08-30 12:47 | Outpatient (BNV) | payer OTHER, SELFPAY | PROVIDERS: Admitting Provider Hospitalist; Emergency Provider Emergency Medicine; PCP Family Medicine; Visit Provider Physician Assistant Medical | DX: M54.50 Low back pain, unspecified (principal); G89.29 Other chronic pain; M54.9 Dorsalgia, unspecified | CPT/HCPCS: 99223; 99232; 99239 ==

== ENCOUNTER → 2025-08-30 12:47 | Outpatient (BNV) | payer OTHER, SELFPAY | PROVIDERS: Admitting Provider Hospitalist; Emergency Provider Emergency Medicine; PCP Family Medicine; Visit Provider Psychiatry & Neurology Neurology | DX: F10.20 Alcohol dependence, uncomplicated (principal); M54.50 Low back pain, unspecified; G89.29 Other chronic pain | CPT/HCPCS: 99223 ==